=== PATIENT | male | born 1975 | race Caucasian/White ===

== ENCOUNTER 2016-10-11 04:41 | Inpatient (IN) | payer MEDICAID ==
[2016-10-11] VITALS (18 sets, daily range): BP systolic 79–127; BP diastolic 54–86; Ht 188 cm; Wt 84.4 kg
[~2016-10-11] VITALS: Ht 188 cm; Wt 84.4 kg
--- NOTE | 2016-10-11 08:05 | NUR ---
UP IN BED AWAKE AT THIS TIME. NO ACUTE DISTRESS NOTED. PT IS ALERT AND ORIENTED. NOTED STAT LABS ORDERED FOR PT. LAB ORDER PLACED AT 0713 WAITING FOR LAB TO COME DRAW. RENAL CUSTOMER SOLUTIONS SUPERVISOR SEEING PT AT THIS TIME. ALSO NOTED PT HAS ORDERS FOR PT AFTER LABS RECIEVED REGARDING TO POTASSIUM LEVELS. WAITING FOR LAB TO DRAW. WILL CONTINUE PLAN OF CARE.
[2016-10-11 08:44] LABS: ALBUMIN 3.2 g/dL (3.4-5.0); ANION GAP 21.8 mmol/L (8-16); BILIRUBIN - TOTAL 0.56 mg/dL (0.2-1.3); CALCIUM 8.7 mg/dL (8.5-10.1); CARBON DIOXIDE 23.9 mmol/L (21.0-32.0); CREATININE - SERUM 9.4 mg/dL (0.6-1.3); PROTEIN - SERUM 6.9 g/dL (6.4-8.2)
[2016-10-11 08:47] LABS: PHOSPHOROUS 12.7 mg/dL (2.5-4.9); POTASSIUM - SERUM 6.7 mmol/L (3.5-5.1)
--- NOTE | 2016-10-11 09:04 | NUR ---
NOTED RECIEVED STAT LABS FOR PT THIS AM/UPON ADMISSION FOR STAT BMP ADN PHOSPHORUS BLOOD DRAWS FOLLOWED BY A SERIES OF ORDERS IF POTASSIUM IS STILL HIGH SUCH 1 AMP D50W IVP, 10 U REGULAR INSULIN IVP, 1 AMP CALCIUM GLUCONATE IVP AND IF POTASSIUM IS NO LONGER ELEVATED TO CALL DR CALDERON FOR FURTHER ORDERS. NOTED LABS HAVE BEEN DRAWN AND NOTED PHOSPHORUS LEVEL OF 12.7 AND POTASSIUM LEVEL OF 6.7. RENAL MOBILE HOME SERVICER ON UNIT AT THIS TIME PLACING ORDERS FOR PT. NOTIFIED RENAL MOBILE HOME SERVICER AT THIS TIME; SHE STATED NO NEW ORDER AND TO NOT ADMIN 1AMP D50, 10 U REGULAR INSULIN, OR 1 AMP CALCIUM GLUCONATE BECAUSE PT IS ABOUT TO RECIEVE DIALYSIS AT THIS TIME. NO FURTHER ORDERS. WILL CONTINUE PLAN OF CARE.
--- NOTE | 2016-10-11 09:36 | NUR ---
DIALYSIS AT BEDSIDE SETTING UP AT THIS TIME. NO ACUATE DISTRESS NOTED. WILL CONTINUE PLAN OF CARE.
--- NOTE | 2016-10-11 11:40 | NUR ---
RECIEVING DIALYSIS AT THIS TIME.NO ACUATE DISTRESS NOTED. VSS. PT DENIES ANY NEEDS. WILL CONTINUE PLAN FO CARE.
--- NOTE | 2016-10-11 12:05 | NUR ---
NOTED AT THIS TIME PT NOTED TO BE VERY VOCALLY INNAPROPIATE WITH DIALYSIS NURSE. PT BEGAN CURSING AT DIALYSIS NURSE DEMANDING HER TO GET OUT OF HIS ROOM AND PT BEGAN NAME CALLING DIALYSIS NURSE. THIS NURSE ATTEMPTED TO CALM PT DOWN AND PT WOULD NOT CALM DOWN UNTIL HE KNEW THAT THE DIALYSIS NURSE WAS STOPPING DIALYSIS BECUASE OF THE PATIENT'S BEHAVIOR. TEACHING PERFORMED WITH PT ON BENEFITS FOR PT TO RECIEVE COMPLETE DIALYSIS TODAY. PT STATED HE UNDERSTOOD AND STILL DID NOT WANT TO CONTINUE DIALYSIS AND PT CONTINUED TO TALK HARSHLY AT DIALYSIS NURSE. RENAL RETAIL ASSOCIATE MANAGER BILINGUAL NOTIFIED AT THIS TIME. NO NEW ORDERS. WILL CONTINUE PLAN OF CARE.
--- NOTE | 2016-10-11 14:46 | NUR ---
SITTING UP IN BED WATCHING TV AT THIS TIME. DENIES ANY NEEDS. WILL CONTINUE PLAN OF CARE.
[2016-10-11 15:45] LABS: CALCIUM 8.9 mg/dL (8.5-10.1)
[2016-10-11 15:47] LABS: ANION GAP 18.5 mmol/L (8-16); CARBON DIOXIDE 30.1 mmol/L (21.0-32.0); POTASSIUM - SERUM 4.6 mmol/L (3.5-5.1)
--- NOTE | 2016-10-11 16:17 | NUR ---
AWAKE WATCHING TV AT THIS TIME. DENIES ANY NEEDS. POTASSIUM REDRAW NOTED WITIIN NORMAL LIMITS AT 4.6. WILL CONTINUE PLAN OF CARE.
[2016-10-11 16:48] LABS: BASOPHILS 0.5 % (0.0-2.0); EOSINOPHILS 3.5 % (0-7); HEMATOCRIT 31.9 % (42.0-54.0); HEMOGLOBIN 9.7 g/dL (13.5-17.5); IMMATURE GRANULOCYTES 0.4 % (0-5); LYMPHOCYTES 9.1 % (15-50); MCH 27.6 pg (26.0-34.0); MCHC 30.4 g/dL (31.0-37.0); MCV 90.6 fL (80.0-100.0); MEAN PLATELET VOLUME 10.4 fL (7.4-10.4); MONOCYTES 8.2 % (2-11); NEUTROPHILS 78.3 % (40-80); PLATELET COUNT 230 10x3/uL (130-400); RBC 3.52 10x6/uL (4.20-6.10); RDW 15.1 % (11.5-14.5); WBC 10.9 10x3/uL (4.8-10.8)
--- NOTE | 2016-10-11 17:54 | NUR ---
UP IN BED EATING SUPPER AT THIS TIME. NO ACUTE DISTRESS NOTED. WILL CONTINUE PLAN FO CARE.
--- NOTE | 2016-10-11 18:42 | NUR ---
DRESSING PLACED TO RIGHT BKA STUMP. CLEANSED WITH WOUND CLEANSER AND MEPILEX DRESSING APPLIED TO SITE. NOTED SITE TO HAVE SOME REDNESS AROUND, BLANCHABLE WITH OPEN 1CM X 1 1/2 CM AREAS. NO DRAINAGE OR DISCHARGE NOTED TO SITE. WILL CONTINUE PLAN OF CARE.
--- NOTE | 2016-10-11 19:00 | NUR ---
Assessment complete. See flowsheet. Pt awake and helped off bedpan with moderate, soft brown stool produced approx 300cc. SKin care with partial linen change completed. Pt self-positioning for comfort with right BKA noted. Dressing CDI. Pt with sores all over body and especially covering back and buttox. Sores are circular with no drainage. Pt receiving O2 via room air. Respirations unlabored. Lung sounds present crackles to RML RLL and diminished LLL and clear to AYESHA and RUL. Pt cough nonproductive at this time and strong. HR UCAF 135bpm with S1S2 irregular and auscultated. All peripheral pulses +2 with capillary refill <3 seconds. Right wrist 18G PIV site to medial wrist CDI no s/s infection or infiltration with NS infusing @ 10cc/hr KVO rate. Lateral 20g PIV site CDI no s/s infection saline locked with dressing reinforced. Left forearm fistula site CDI thrill palpated/bruit auscultated. Abdomen soft, non-tender with BS present to all quadrants. Urinal at bedside within pt reach. Pt denies pain at this time. Blood pressures reading 80s-90s systolic with UCAF. Vagal correction attempted for AFIB and unsatisfactory. Pt sitting up in bed eating grapes. Call light and bedside table within reach. CPOC.
--- NOTE | 2016-10-11 19:29 | NUR ---
paged for HR UCAF 135bpm with SBP 80s currently.
--- NOTE | 2016-10-11 19:55 | NUR ---
Dr. Cervantes repaged.
--- NOTE | 2016-10-11 20:00 | NUR ---
spoken to over telephone with pt status relayed. Order to consult Cardiology received.
--- NOTE | 2016-10-11 20:05 | NUR ---
with [facility] paged regarding new consult.
--- NOTE | 2016-10-11 20:38 | NUR ---
spoken to over telephone with orders received for Digoxin 0.5mg IVP x1 now; then Digoxin 0.25mg IV Q4H x3 doses.
--- NOTE | 2016-10-11 21:00 | NUR ---
Pt helped up to bedside toilet for large, soft brown BM approx 500cc. Pericare self-completed. Hand wash provided to pt and helped back to bed to position for comfort. Call light and bedside table within pt reach.
--- NOTE | 2016-10-11 23:00 | NUR ---
Reassessment complete. See flowsheet. Pt awake and provided with milk and saltine crackers per request. No neuro deficits noted. O2 RA. Respirations remain unlabored. RML RLL crackles persist with productive cough at this time. HR remains UCAF 110s with S1S2 auscultated. PIV sites saline locked at this time. Pt self-positioned up in bed with bedside table and call light within reach. BS +. Denies further reqeust at this time. No other changes to note. Pt remains cooperative. SBP 110s consistent at this time. CPOC.
[2016-10-12] VITALS (10 sets, daily range): BP systolic 100–151; BP diastolic 54–95
--- NOTE | 2016-10-12 01:00 | NUR ---
Digoxin 0.25mg IV administered per order. HR now ST 110BPM. Pt helped to bedside toilet for BM. Ice chips provided per request.
--- NOTE | 2016-10-12 01:24 | NUR ---
Pt with large, soft BM approx 300cc. Self pericare completed. Pt helped back to bed to position for comfort. Call light and bedside table remain within pt reach. CPOC.
--- NOTE | 2016-10-12 02:00 | NUR ---
Right medial PIV site "stinging" and discontinued per pt request. Lateral wrist PIV saline locked.
--- NOTE | 2016-10-12 03:00 | NUR ---
Reassessment complete. See flowsheet. Pt resting quietly with VSS and awakens to verbal stimulation with no changes to note. O2 RA. Respirations remain unlabored. HR ST 101BPM. S1S2 auscultated. BS +. NO changes to note. Pt denies further needs at this time and continues resting. Call light and bedside table remain within pt reach. CPOC.
--- NOTE | 2016-10-12 05:00 | NUR ---
Pt resting with VSS.
[2016-10-12 05:17] LABS: BASOPHILS 0.5 % (0.0-2.0); HEMATOCRIT 30.6 % (42.0-54.0); HEMOGLOBIN 9.4 g/dL (13.5-17.5); IMMATURE GRANULOCYTES 0.4 % (0-5); LYMPHOCYTES 18.6 % (15-50); MCH 27.7 pg (26.0-34.0); MCHC 30.7 g/dL (31.0-37.0); MCV 90.3 fL (80.0-100.0); MEAN PLATELET VOLUME 10.5 fL (7.4-10.4); MONOCYTES 14.5 % (2-11); PLATELET COUNT 255 10x3/uL (130-400); RBC 3.39 10x6/uL (4.20-6.10); WBC 10.3 10x3/uL (4.8-10.8)
[2016-10-12 06:09] LABS: ALBUMIN 3.2 g/dL (3.4-5.0); BILIRUBIN - TOTAL 0.6 mg/dL (0.2-1.3); CALCIUM 7.7 mg/dL (8.5-10.1); CARBON DIOXIDE 27.4 mmol/L (21.0-32.0); CREATININE - SERUM 8.3 mg/dL (0.6-1.3); MAGNESIUM - SERUM 2.7 mg/dL (1.8-2.4); PROTEIN - SERUM 6.9 g/dL (6.4-8.2)
[2016-10-12 06:11] LABS: PHOSPHOROUS 13.8 mg/dL (2.5-4.9); POTASSIUM - SERUM 5.4 mmol/L (3.5-5.1)
--- NOTE | 2016-10-12 07:30 | NUR ---
SITTING UP IN BED WATCHING TV AND EATING BREAKFAST. DENIES ANY NEES. NO ACUTE DISTRESS NOTED. WILL CONTINUE PLAN OF CARE.
[2016-10-12] MEDS ORDERED: ASPIRIN325 MG PO (08:52)
[2016-10-12] MEDS ORDERED: COREG25 MG PO (08:54)
[2016-10-12] MEDS ORDERED: CELEXA40 MG PO (08:55)
[2016-10-12] MEDS ORDERED: LANOXIN250 MCG PO (08:55)
[2016-10-12] MEDS ORDERED: FENOFIBRATE160 MG PO (08:56)
[2016-10-12] MEDS ORDERED: LASIX80 MG PO (08:56)
[2016-10-12] MEDS ORDERED: LEVEMIR100 U/M1 SC (08:57)
[2016-10-12] MEDS ORDERED: NOVOLOG100 U/M1 SC (08:58)
[2016-10-12] MEDS ORDERED: VITAMIN D250000 UNIT PO (08:59)
[2016-10-12] MEDS ORDERED: RENVELA800 MG PO (08:59)
[2016-10-12] MEDS ORDERED: DESERYL100 MG PO (09:00)
[2016-10-12] MEDS ORDERED: TYLENOL W/CODEI1 TAB PO (09:01)
[2016-10-12] MEDS ORDERED: HYDRALAZINE HCL25 MG PO (09:02)
[2016-10-12] MEDS ORDERED: AMBIEN10 MG PO (09:03)
[2016-10-12] MEDS ORDERED: ISOSORBIDE DINI30 MG PO (09:03)
[2016-10-12] MEDS ORDERED: NORVASC10 MG PO (09:06)
--- NOTE | 2016-10-12 09:45 | NUR ---
NOTED ORDER FOR PT TO BE DISCHAGED. WILL CALL THE [facility] AT [facility] TO SEE HOW THEY PREFER TRANSPORTATION FOR PT. RENAL BREAD OVEN OPERATOR GIVEN PT HARD SCRIPT FOR PHYSICAL THERAPY. WILL CONTINUE PLAN OF CARE.
--- NOTE | 2016-10-12 10:12 | NUR ---
SPOKE WITH ROYER FROM THE [facility] AT [phone] ABOUT PT ORDER FOR DISCHARGE. NOTED ROYER STATED PT TRANSPORTATION WOULD NEED TO BE THE MEDICAID VAN BUT SHE STATED SHE WAS NOT SURE IF THE MEDICAID VAN RAN TODAY, IT PROBABLY WOULD NOT BE UNTIL THURSDAY. HOSPITAL CASE MANAGEMENT TO COME BY TODAY, WILL DISCUSS TO SEE OPTIONS FOR PT TRANSPORTATION AND TO SEE ABOUT MEDICAID VAN. WILL CONTINUE PLAN OF CARE.
--- NOTE | 2016-10-12 11:20 | NUR ---
NOTED PT TO BE TRANSPORTED BACK TO PT LOCATION OF RESIDENCE[facility] [place], [place] VIA [facility]. [facility] IS TO COME PICK PT UP AFTER LUNCH. PT REPORT GIVEN TO ROYER. PT NOTIFIED. NO ACUTE DISTRESS NOTED. WILL CONTINUE PLAN OF CARE.
--- NOTE | 2016-10-12 12:16 | NUR ---
Is the patient Alert and Oriented? Yes 0 * How many steps to enter\exit or inside your home? none 0 * PCP DR Darryn Hightower in [place], [place] 0 * Pharmacy [facility] in [place], [place] 0 * Preadmission Environment Assisted Living 0 * Facility Name [facility] [address] [place], [place] 0 * ADLs Independent 0 * Equipment Wheelchair 0 * Other Equipment Prosthesis 0 * List name and contact numbers for known caregivers / representatives who currently or will assist patient after discharge: Teri Dave _ [phone] same address as above 0 * Community resources currently utilized None 0 * Additional services required to return to the preadmission environment? No 0 * Can the patient safely return to the preadmission environment? Yes 0 * Has this patient been hospitalized within the prior 30 days at any hospital? No 0
--- NOTE | 2016-10-12 12:26 | NUR ---
vSpoke with the patient at the bedside this AM. He is ready for discharge to home. The Medicaid van is not available over the weekend. He requires transportation to home. Patient feels he can tolerate taxi service to home. He is normally independent. Utilizes a wheelchair. Has a prosthesis for the RLE. The wheelchair and prosthesis are at the assisted living facility. He will obtain assistance into facility. Will have lunch prior to discharge. Primary nurse has spoken w/ facility and verified address. He is alert and oriented x4. Was cooperative w/ CM. Voiced no additional needs. CM to arrange taxi service.
--- NOTE | 2016-10-12 12:29 | NUR ---
IV TO RIGHT WRIST DC AT THIS TIME, CATHETER TIP INTACT. PT CURRENTLY IN ROOM PUTTING PERSONAL CLOTHES ON. [facility] CALLED BY CASE MANAGEMENT. WAITING FOR [facility] TO ARRIVE A HOSPITAL TO [facility] OPER[facility] PT AND TRANSPORT TO THE [facility].
--- NOTE | 2016-10-12 12:38 | NUR ---
TC to [facility] [facility] [phone]. CM spoke w/ Dorys to arrange voucher taxi transport for the patient. CM spoke w/ primary nurse and provided phone number for her to call when taking patient to hospital entrance.
--- NOTE | 2016-10-12 13:01 | NUR ---
DISCHARGE PAPERWORK SIGNED BY PT. NO QUESTIONS OR CONCERNS NOTED. CALLED [facility] TO NOTIFY THAT PT IS READY TO BE PICKED UP. THEY STATED THEY WOULD BE HERE IN ABOUT 10 MIN TO COMBINE INSPECTOR PT. WILL CONTINUE PLAN FO CARE.
--- NOTE | 2016-10-12 13:18 | NUR ---
PT DISCHARGED AT THIS TIME. LEFT WITH ALL PERSONAL ITEMS, DISCHARGE PAPERWORK, AND HARD SCRIPT FOR PHYSICAL THERAPY. PT DENIES ANY QUESTIONS OR CONCERNS. LEFT VIA [facility]. TRANSFERRED WITH ASSIST FROM THIS NURSE. NO FURTHER ACTIONS.
== END 2016-10-12 13:19 | disposition home or self-care (01) | DRG 640 ==
LOC: D.ICU 04:41
PROVIDERS: ADMIT Internal Medicine Nephrology
PROC: 5A1D60Z (ICD-10-PCS; principal; 2016-10-11)
DX: E87.5 Hyperkalemia (principal); N18.6 End stage renal disease; I12.0 Hypertensive chronic kidney disease with stage 5 chronic kidney disease or end stage renal disease; I48.91 Unspecified atrial fibrillation; D63.1 Anemia in chronic kidney disease; E83.39 Other disorders of phosphorus metabolism; E11.22 Type 2 diabetes mellitus with diabetic chronic kidney disease; Z99.2 Dependence on renal dialysis; Z91.15 Patient's noncompliance with renal dialysis; Z72.0 Tobacco use